=== PATIENT | female | born 1995 | race Caucasian/White ===

== ENCOUNTER 2018-07-24 05:37 | Emergency (ER) | payer OTHER ==
[~2018-07-24] VITALS: Ht 157.5 cm; Wt 54.4 kg
[~2018-07-24 05:37] MED LIST: NOHOMEMEDICATIONS; VENTOLIN HFA 1818 GM INH; ZOFRAN 4 MG ORAL4 M1 DIS
[2018-07-24] MEDS ORDERED: BACTRIM DS TAB1 EACH PO (06:23)
[2018-07-24 07:18] VITALS: BP 101/42
== END 2018-07-24 07:20 | disposition home or self-care (01) ==
LOC: ER 05:37
DX: L02.31 Cutaneous abscess of buttock (principal); L03.317 Cellulitis of buttock; L25.9 Unspecified contact dermatitis, unspecified cause; J45.909 Unspecified asthma, uncomplicated; F17.210 Nicotine dependence, cigarettes, uncomplicated